=== PATIENT | male | born 1975 | race Caucasian/White ===

== ENCOUNTER 2020-01-22 03:57 | Outpatient (CLI) | payer OTHER, SELFPAY ==
[2020-01-22 12:08] LABS: ALT 20 U/L (16-63); AST 15 U/L (15-37); Alkaline Phosphatase 44 U/L (46-116); Anion Gap 8.7 mmol/L (3-11); BUN 15 mg/dL (7-18); Bilirubin, Total 0.4 mg/dL (0.2-1.0); CO2 28.3 mmol/L (21.0-32.0); CREATININE 0.73 mg/dL (0.70-1.30); Calcium 9.1 mg/dL (8.5-10.1); Chloride 104 mmol/L (98-107); Glucose 98 mg/dL (74-106); Potassium 3.9 mmol/L (3.5-5.1); Sodium 141 mmol/L (136-145); Total Protein 6.4 g/dL (6.4-8.2)
== END 2020-01-22 04:17 ==
DX: Z00.00 Encounter for general adult medical examination without abnormal findings (principal); F41.9 Anxiety disorder, unspecified; G47.09 Other insomnia
CPT/HCPCS: 36415; 80053

== ENCOUNTER 2020-12-15 19:09 | Outpatient (CLI) | payer OTHER, SELFPAY ==
--- NOTE | 2020-12-15 | DI.RAD_ITS ---
EXAM: XR WRIST LT COMPLETE CLINICAL HISTORY: LT WRIST PAIN X 6 MONTHS. TECHNIQUE: 2D digital imaging was performed. COMPARISON: No exams were available for comparison FINDINGS: There is no evidence of fracture or carpal dislocation nor significant ulnar variance. No obvious sc aphoid fracture. Scapholunate distance is normal. Small 3 millimeters cyst noted at the mid lunate level. No evidence of avascular necrosis. No osseous lesions nor erosions. No soft tissue calcific ations. Bone density is age-appropriate. IMPRESSION: No significant radiographic findings on these three views of the left wrist. DATA REPOSITORY: RADIATION DOSE DELIVERED:
== END 2020-12-15 19:29 ==
PROVIDERS: Visit Provider Chiropractor Orthopedic
DX: M25.532 Pain in left wrist (principal)
CPT/HCPCS: 73110

== ENCOUNTER 2021-07-13 13:43 | Outpatient (REF) | payer OTHER, SELFPAY ==
[2021-07-15 11:54] LABS: Acrosom Defect 24.5 %; Appearance Normal; Container Type 50 mL Conical; Grade 3.5 (>=2.5); Head Shape Abnormal 18.5 %; Motile/Ejaculate 125.3 x10(6) (>=9.0); Motile/mL 17.9 x10(6) (>=6.0); Motility 38 % (>=40); Study Type Semen
== END 2021-07-13 13:44 | disposition home or self-care (01) ==
LOC: LBO 13:43
PROVIDERS: Obstetrics & Gynecology Gynecology
DX: Z30.8 Encounter for other contraceptive management (principal); Z31.41 Encounter for fertility testing
CPT/HCPCS: 89240; 89310

== ENCOUNTER 2021-10-26 08:54 | Outpatient (CLI) | payer OTHER, SELFPAY ==
[2021-10-26 20:39] LABS: COVID-19 RT-PCR UVMMC Result Negative (Negative)
== END 2021-10-26 08:55 | disposition home or self-care (01) ==
LOC: LBO 08:55
PROVIDERS: Visit Provider Nurse Practitioner Family
DX: Z20.822 Contact with and (suspected) exposure to COVID-19 (principal)
CPT/HCPCS: U0003

== ENCOUNTER 2022-07-19 04:12 | Outpatient (CLI) | payer OTHER, SELFPAY ==
[2022-07-19 12:37] LABS: ALT 32 U/L (16-63); AST 18 U/L (15-37); Albumin 4.1 g/dL (3.4-5.0); Alkaline Phosphatase 36 U/L (46-116); Anion Gap 9.4 mmol/L (3-11); BUN 18 mg/dL (7-18); Bilirubin, Total 0.6 mg/dL (0.2-1.0); CO2 28.6 mmol/L (21.0-32.0); Calcium 8.9 mg/dL (8.5-10.1); Calculated LDL 104 mg/dL (<100); Chloride 104 mmol/L (98-107); Cholesterol 173 mg/dL (<200); Glucose 112 mg/dL (74-106); HDL Cholesterol 55 mg/dL (40-60); Potassium 4.3 mmol/L (3.5-5.1); Sodium 142 mmol/L (136-145); Total Protein 7.3 g/dL (6.4-8.2); Triglyceride 70 mg/dL (<150)
== END 2022-07-19 04:13 | disposition home or self-care (01) ==
LOC: LOS 04:12
DX: I10 Essential (primary) hypertension (principal); Z00.00 Encounter for general adult medical examination without abnormal findings
CPT/HCPCS: 36415; 80053; 80061

== ENCOUNTER 2022-08-02 09:24 | Outpatient (CLI) | payer OTHER, SELFPAY | END 2022-08-02 09:25 | disposition home or self-care (01) | LOC: DI.CM 09:27 | PROVIDERS: Visit Provider Nurse Practitioner Family | DX: R69 Illness, unspecified (principal) | CPT/HCPCS: 93010 ==

== ENCOUNTER 2023-05-20 09:05 | Day surgery (SDC) | payer OTHER, SELFPAY ==
--- NOTE | 2023-05-19 20:23 | W.COLOREPORT ---
Date of service: 05/20/23 Time of Service: 10:35 Colonoscopy Report Date of procedure: 05/20/23 Pre-op diagnosis general: chnages in bowel habits/rectal bleeding Post-op diagnosis procedure note: other (normal) Surgeon: Lianet Eid Anesthesia Type: General:No Airway Estimated blood loss (mL): 0 Pathology: none sent Complications: None Disposition: same day Prep: Miralax/Dulcolax Retraction Time: 9 Procedure Description: After informed consent was obtained the patient was taken to the procedure room and placed in a left decubitous position. Monitors were applied and a time out was done. The patients name, date of , procedure, allergies to medications and metal in their body was reviewed. The patient was then sedated. Once sedated and comfortable a rectal exam was done. External exam was normal. Internal exam revealed a normal sphincter tone and no palpable masses. The prostate nl The scope was then introduced and retrofelexed. No internal hemorrhoids were identified; there are a few hemorrhoidal tags. The scope was then advanced to the cecum without difficulty. The TI and appendiceal orifice were identified. The prep was BBPS 3 in all segments for a total of 9 9. The scope was then slowly retracted over 9 minutes back into the rectum. there are no polyps, AVMs, or diverticula visualized today. The mucosa is pink and healthy with a normal vascular pattern.. The scope was removed and the patient was woken up and taken back to Same day surgery in stable condition. The patient tolerated the procedure well and there were no immediate complications. Follow up: The patient should follow up in 10 years unless they develop changes in bowel habits or other new gastrointestinal complaints.
--- NOTE | 2023-05-19 20:24 | PDOC.DSDIS_ITS ---
Date of service: 05/20/23 Time of Service: 10:32 Discharge Plan Disposition Patient Disposition: Home Condition: Good Discharge Details Reason For Visit: colon scope Attending Provider: Lianet Eid Primary Care Provider: Jony Roper Home Meds and New Rx's Prescriptions: Continued multivitamin [One Daily Multivitamin] Tablet 1 tab PO DAILY ipklzmv-ihbq-hbssx-oreg-capryl 100 mg-150 mg- 50 mg-150 mg capsule 1 cap PO DAILY melatonin 12 mg tablet 12 mg PO DAILY aspirin 81 mg tablet,delayed release (DR/EC) 81 mg PO DAILY ibuprofen 200 MG capsule 4 tab PO PRN ascorbic acid (vitamin C) [Vitamin C] 500 MG tablet,chewable 1,500 mg PO DAILY cholecalciferol (vitamin D3) 1,000 UNIT capsule 3,000 unit PO DAILY glucosam-chond wf-ykylle-sv ac 1 EACH capsule 3 ea PO DAILY bupropion HCl 300 mg tablet extended release 24 hr 300 mg PO QAM Qty: 90 2RF Discontinued bisacodyl [Dulcolax (bisacodyl)] 5 mg tablet,delayed release (DR/EC) 5 mg PO ONCE Qty: 4 0RF Rx Instructions: Take per colonoscopy instructions provided by ordering providers office polyethylene glycol 3350 17 gram/dose powder 17 g PO ONCE Qty: 238 0RF Rx Instructions: Take per colonoscopy instructions provided by ordering providers office Discharge Instructions Additional Instructions: DSU Colonoscopy Post- Op Instructions Instructions for Everyone who is given Ane sthesia: For your safety, please do the following for the next twenty-four (24) hours: *Do Not operate a motor vehicle (car, truck, motorcycle, etc.) *Do Not drink alcoholic beverages or use any recreational drugs for the first 24 hours or while taking pain medications. The medications in your body may have a reaction that can be dangerous. *Do Not make any important decisions or sign any important papers. Findings: Normal high fiber diet and avoid staining Follow up: Normal repeat in 10 yrs time 1. No lifting over 20 pounds or strenuous activity for the first 24 hours after your procedure. After 24 hours there are no restrictions on your activity but you may feel fatigued for a few days. 2. After you arrive home you may have a light meal and return to your normal diet as you can tolerate it without feeling sick to your stomach. 3. You may have a bloated, gaseous feeling in your belly (abdomen) after a colonoscopy. Passing gas and belching will help. Walking or lying down on your left side with your knees flexed may relieve the discomfort. Call the office at [phone] (Office) or [phone] (Hospital) right away if you notice any of the following: a.Vomiting of blood or ?coffee ground stools?. b.Rectal bleeding 1Tbsp, blood clots or continuous bleeding. c.Severe belly (abdominal) pain. d.A hard distended belly (abdomen) and an inability to pass gas. 4. Please don?t expect to have a normal BM (bowel movement) for 2-3 days after your procedure. 5. If there are questions regarding the findings of your procedure, please contact your doctor 6. If you are unable to contact your doctor with a problem, contact the hospital at [phone]. 7. Continue all your regular medications unless directed otherwise. I understand the above instructions and have no questions. Signature of Patient or Adult Escort Name of Responsible Adult Escort Signature of Nurse Date/Time Stand Alone Forms: Anesthesia Discharge Inst., Zena Garcia (DSU) Activity:: see above Diet:: see above Discharge Orders Discharge Orders: Discharge Order (Routine); Ordered 05/20/23 Ordered By: Lianet Eid DS: Diagnosis Discharge Diagnosis (1) Family history of cardiac disorder in father: Status: Acute (2) Alcohol abuse counseling and surveillance: Status: Acute (3) Depression with anxiety: Status: Acute (4) Increased BMI: Status: Resolved (5) Chronic constipation: Status: Acute (6) Encounter for diagnostic colonoscopy due to change in bowel habits: Status: Acute Asessment and Plan: The patient is seen and examined after their colonoscopy.? The patient has been able to pass gas.? They are not having abdominal pain.? They have been able to tolerate liquids and a snack.? They do not have any nausea or vomiting.? They are not having any chest pain or shortness of breath.??? They are not having any rectal bleeding. Their vital signs have been stable-see nursing notes. We discussed findings during their colonoscopy, and any biopsies that were done/polyps that were removed. The patient will be sent a letter with any biopsy results, and when to repeat the colonoscopy.-see discharge instructions. Patient was given explicit instructions to follow-up regarding colonoscopy-refer to discharge instructions.? We reviewed resumption of medications.Patient verbalized understanding and discharged in stable and satisfactory condition- See nursing notes (7) Rectal bleeding: Status: Acute
[2023-05-20 09:25] VITALS: BP 118/87; PULSE 71; RESP 16; TEMP 36.3; O2SAT 98
[2023-05-20] MEDS: Lactated Ringers 1,000 ML 80 ML IV (09:38)
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
[2023-05-20 09:54] VITALS: BMI 26.0
[2023-05-20 10:36] VITALS: BP 102/81; PULSE 66; RESP 16; TEMP 36.3; O2SAT 98
--- NOTE | 2023-05-20 10:45 | W.ANESPOSTOP ---
Postoperative Evaluation Date, Time and Location Date Performed: 05/20/23 Time Performed: 10:46 Patient Location: Day Surgery Unit Vital Signs Most Recent Imported Vital Signs: Most Recent Vital Signs Temp Pulse Resp BP Pulse Ox 36.3 C L 66 16 102/81 98 05/20/23 10:36 05/20/23 10:36 05/20/23 10:36 05/20/23 10:36 05/20/23 10:36 Pain Score Most Recent Pain Score: Most Recent Pain Score Pain Level 0 05/20/23 10:36 Assessment Mental Status: Awake (Alert & Oriented to Patient Baseline) Airway and Respiratory Function: Patent airway with normal (patient baseline) respiratory exam Cardiovascular Function: Hemodynamically Stable Hydration Status: Adequately Hydrated Nausea & Vomiting: No Nausea or Vomiting Pain: Pt. Denies Any Pain Peripheral Nerve Block: Patient did not receive a nerve block
[2023-05-20 10:58] VITALS: BP 114/86; PULSE 56; RESP 16; TEMP 36.2; O2SAT 100
== END 2023-05-20 11:10 | disposition home or self-care (01) ==
PROVIDERS: PCP Nurse Practitioner Family; Visit Provider Surgery
PROC: 0DJD8ZZ Inspection of Lower Intestinal Tract, Via Natural or Artificial Opening Endoscopic (ICD-10-PCS; CPT 45378; principal; 2023-05-20 09:45)
DX: K62.5 Hemorrhage of anus and rectum; R19.4 Change in bowel habit
CPT/HCPCS: 45378

== ENCOUNTER 2023-06-01 02:43 | Outpatient (CLI) | payer OTHER, SELFPAY ==
[2023-06-02 12:35] LABS: Hepatitis C Ab w Rflx HCV PCR Negative (Negative)
[2023-06-02 12:43] LABS: HIV-1/2 Ag & Ab Screen Negative (Negative)
== END 2023-06-01 02:44 | disposition home or self-care (01) ==
LOC: LBO 02:44
PROVIDERS: PCP Nurse Practitioner Family; Visit Provider Nurse Practitioner Family
DX: Z11.4 Encounter for screening for human immunodeficiency virus [HIV] (principal); Z11.59 Encounter for screening for other viral diseases
CPT/HCPCS: 36415; 86803; 87389

== ENCOUNTER 2023-08-08 10:06 | Outpatient (CLI) | payer OTHER, SELFPAY ==
--- NOTE | 2023-08-08 10:00 | RT.EKG_ITS ---
APPROVED REPORT Exam: Resting ECG Reason for Exam: annual Patient Location: O HR:62 bpm ECG Measurements Heart Rate 62 AXIS DE 136 P 60 QRSd 103 QRS 49 QT 410 T 38 QTc 417 Conclusion Sinus rhythm...normal P axis, V-rate 50- 99 ST elev, probable normal early repol pattern...ST elevation, age<55 Normal Electrocardiogram
== END 2023-08-08 10:07 | disposition home or self-care (01) ==
LOC: DI.CM 10:09
PROVIDERS: PCP Nurse Practitioner Family; Visit Provider Nurse Practitioner Family
DX: R00.2 Palpitations (principal)
CPT/HCPCS: 93010

== ENCOUNTER → 2023-08-29 11:46 | Outpatient (CLI) | payer OTHER, SELFPAY ==
--- NOTE | 2023-08-29 10:00 | DI.US_ITS ---
APPROVED REPORT EXAM: Comprehensive 2D, Doppler, and color-flow Echocardiogram Patient Location: Out-Patient Concrete Handler: Jamie Mccauley RDCS (AE) Indications: SOB, dyspnea, family h/o ischemic heart disease Other Information Study Quality: Good Conclusion Normal left ventricular wall thickness and chamber size. Ejection fraction is 60 to 65%. Wall motio n is normal Normal right ventricular size and systolic function Both atria are normal in size There is no structural or hemodynamically significant valvular disease Estimated right ventricular systolic pressure is 16 mmHg Wall motion Left Ventricle The left ventricle is normal size. The left ventricular systolic function is normal. The left ventric ular ejection fraction is within the normal range. There is normal left ventricular wall thickness. T here is normal LV segmental wall motion. There is no ventricular septal defect visualized. LVEF is 60 -65%. Right Ventricle The right ventricle is normal size. The right ventricular systolic function is normal. The RVSP is 16 .1 mmHg. Atria The left atrium size is normal. The right atrium size is normal. The interatrial septum is intact wit h no evidence for an atrial septal defect. Aortic Valve The aortic valve is normal in structure. Aortic valve is trileaflet. There is no aortic valvular sten osis. No aortic regurgitation is present. Mitral Valve The mitral valve is normal in structure. No evidence of mitral valve stenosis. Trace mitral regurgita tion. Tricuspid Valve The tricuspid valve is normal in structure. There is no tricuspid valve stenosis. Trace tricuspid reg urgitation. Pulmonic Valve The pulmonary valve is normal in structure. There is no pulmonic valvular stenosis. There is no pulmo michelle valvular regurgitation. Great Vessels The aortic root is normal in size. Ascending aorta is not well visualized. Aortic arch is normal in c aliber. IVC is normal in size and collapses >50% with inspiration. Pericardium There is no pericardial effusion. 2D Dimensions IVSD d PLAX 0.94 cm M: 0.6-1.2 Ao Root d 3.29 cm M: 3.1 - 3.7 LVPW d PLAX 0.85 cm M: 0.6 - 1.2 LVID d PLAX 4.51 cm M: 4.2 - 5.8 LVDs 2.90 cm M: 2.5 - 4.0 LV EF Teichholz 65.3 % FS 35.69 % LV EDV (Teich) 93.0 mL LV ESV (Teich) 32.2 mL Stroke Vol Index (Teich) 27.99 M-Mode TAPSE 2.17 cm (M/F) >1.7 Auto EF LV EDV A4C 141.8 mL LV EDV A2C 136.8 mL LV EDV BP 141.1 mL LV ESV A4C 55.2 mL LV ESV A2C 52.7 mL LV ESV BP 54.3 mL LVEF(%) A4C 61.1 % LVEF(%) A2C 61.5 % LVEF(%) BP 61.5 % LV SV A4C 86.6 ml LV SV A2C 84.2 ml LV SV BP 86.8 ml LV CO A4C 7.2 L/min LV CO A2C 6.5 L/min LV CO BP 6.8 L/min HR A4C 83.34 BPM HR A2C 76.93 BPM LV EDV Index (BP) LA Volume LA Length A4C 3.7 cm LA Length A2C LA Area A4C s 8.39 cm2 LA Area A2C s LA Vol A4C A-L 16.22 mL LA Vol A2C A-L LA Vol Biplane A-L LA Vol A4C MOD 15.8 mL LA Vol A2C MOD LA Vol BP MOD RA Volume RA Area A4C 8.1 cm2 RA ESV A4C (A-L) 15.4mL RA Vol/BSA A4C A-L RA Length A4C 3.6 cm RA ESV A4C (MOD) 14.7mL LV Diastology MV E' medial 0.092 (>0.07 m/s) MV E Vmax 0.73 (0.4-1.3 m/s) MV E/E' MED 7.92 (<14) MV A Vmax 0.55 (0.4-1.3 m/s) MV E' lateral 0.130 (>0.1 m/s) E/A Ratio 1.3 MV E/E' LAT 5.63 (<14) MV E' Average 0.111 m/s MV E/E'(average) 6.58 Aortic Valve AoV Vmax 1.12 m/s LVOT Vmax 1.15 m/s AoV Peak Grad 5.0 mmHg LVOT Peak Grad 5.3 mmHg AoV Area (Vmax) 3.97 cm2 LVOT VTI 0.228 m AoV VTI 0.252 m LVOT Mean Grad 2.8 mmHg AoV Mean Satnam. 0.79 m/s LVOT SV 88.13 mL AoV Mean Grad 2.8 mmHg LVOT Diam s 2.20 cm AoV Area (VTI) 3.49 cm2 Velocity Ratio 1.03 Mitral Valve MV DT 192 (160-240 msec) Pulmonary Valve PV Vmax 0.96 (0.5-1.5 m/s) RVOT Vmax 0.88 m/s PV Peak Grad 3.7 mmHg RVOT Peak Gr. 3.1 mmHg PV Mean Satnam 0.60 m/s RVOT VTI 0.149 m PV Mean Grad 1.7 mmHg RVOT Mean Gr. 1.5 mmHg Tricuspid Valve RA Pressure 3.00 mmHg TR Vmax 1.81 m/s TR Peak Grad 13.1 mmHg RVSP (TR) 16.1 mmHg
== END ==
PROVIDERS: PCP Nurse Practitioner Family; Visit Provider Nurse Practitioner Family
DX: R06.00 Dyspnea, unspecified (principal); Z82.49 Family history of ischemic heart disease and other diseases of the circulatory system
CPT/HCPCS: 93306

== ENCOUNTER 2023-10-07 10:39 | Outpatient (CLI) | payer OTHER, SELFPAY ==
--- NOTE | 2023-10-07 08:30 | DI.RAD_ITS ---
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 TECHNIQUE: 2D digital imaging was performed. COMPARISON: No exams were available for comparison FINDINGS: 3 views No evidence of fracture nor dislocation nor significant ulnar variance. There is advanced narrowing of the radiocarpal joint at the level of the lunate and there are degener ative subarticular cysts in the distal radius and proximal lunate at this level. Scapholunate distan ce normal. No degenerative changes in the distal carpal row including 1st carpometacarpal joint. 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
== END 2023-10-07 10:40 | disposition home or self-care (01) ==
LOC: DIORS 10:40
PROVIDERS: PCP Nurse Practitioner Family; Referring Provider Nurse Practitioner Family; Visit Provider Student in an Organized Health Care Education/Training Program
DX: M19.032 Primary osteoarthritis, left wrist (principal)
CPT/HCPCS: 73110

== ENCOUNTER 2024-08-20 02:26 | Outpatient (CLI) | payer OTHER, SELFPAY ==
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
== END 2024-08-20 02:46 ==
LOC: DI 02:27
PROVIDERS: PCP Nurse Practitioner Family; Visit Provider Nurse Practitioner Family
DX: M25.561 Pain in right knee (principal)
CPT/HCPCS: 73562

== ENCOUNTER 2024-09-24 15:22 | Outpatient (CLI) | payer OTHER, SELFPAY ==
--- NOTE | 2024-09-24 08:15 | DI.RAD_ITS ---
Exam(s) XR KNEE RT 1V EXAM: XR KNEE RT 1V CLINICAL HISTORY: right knee pain. TECHNIQUE: 2D digital imaging was performed of the right knee. One views obtained. Merchant, views were obtained. COMPARISON: CR XR KNEE RT 3V AP,LAT,JAIME from 08/20/2024 FINDINGS: Single merchant's view is obtained. There is mild spurring at the lateral aspect of the patella. Th e patellofemoral joint is otherwise well maintained. Soft tissues are unremarkable. IMPRESSION: DATA REPOSITORY: RADIATION DOSE DELIVERED:
== END 2024-09-24 15:23 | disposition home or self-care (01) ==
LOC: DIORS 15:22
PROVIDERS: PCP Nurse Practitioner Family; Visit Provider Physician Assistant
DX: M25.561 Pain in right knee (principal)
CPT/HCPCS: 73560